=== PATIENT | male | born 1995 | race Caucasian/White ===

== ENCOUNTER 2016-09-13 14:46 | Emergency (ER) | payer BC ==
[2016-09-13 14:49] VITALS: BP 135/79; PULSE 79; RESP 16; TEMP 97.9; O2SAT 98
--- NOTE | 2016-09-13 15:06 | EDPHY ---
H & P Time Seen by Provider: 09/13/16 14:56 HPI/ROS: CHIEF COMPLAINT: Right thumb laceration HISTORY OF PRESENT ILLNESS: Loading a [employer] truck for a local move when he jammed his right thumb into a piece of sharp metal. REVIEW OF SYSTEMS: No weakness or numbness, no foreign body sensation, no other injuries. PAST MEDICAL HISTORY: Negative Social history: Lives in [place], not sure of tetanus is up-to-date General Appearance: Alert and conversant, cooperative. Patient has a 1 cm laceration that extends volar from the tip of the thumb nail. FDP FDS and extensor tendon function intact. Normal cap refill and two-point discrimination. No subungual hematoma seen. Emergency Department course/MDM: Procedure: Laceration repair. Verbal consent was obtained from the patient. The 1 cm laceration on the location was anesthetized using 0.5% bupivacaine with out epinephrine. The wound was irrigated with standard emergency department protocol, draped and explored. There were no deep structures involved. No tendon injury was identified. No foreign body found. He did have a 1 mm thick sliver of the nail cut off the distal part of the thumb. The wound was repaired with 5 0 nylon. The wound repair was simple. Excellent hemostasis was obtained. Wound care instructions were discussed and the patient was warned regarding scarring. The procedure was performed by myself. Smoking Status: Never smoked Constitutional: Initial Vital Signs Temperature (C) 36.6 C 09/13/16 14:47 Heart Rate 79 09/13/16 14:47 Respiratory Rate 16 09/13/16 14:47 Blood Pressure 135/79 H 09/13/16 14:47 O2 Sat (%) 98 09/13/16 14:47 O2 Delivery Mode Room Air Allergies/Adverse Reactions: No Known Allergies Allergy (Unverified 06/07/13 12:37) Home Medications: Medication Instructions Recorded No Home Meds 06/07/13 Lidocaine 2% Viscous [Lidocaine 2% 5 ml PO Q2-3PRN PRN #100 ml 02/24/15 Viscous (RX)] MDM/Departure - Depart Disposition: Home, Routine, Self-Care Clinical Impression: Laceration of right thumb Qualifiers: Encounter type: initial encounter Damage to nail status: with damage Foreign body presence: without foreign body Qualified Code(s): S61.111A - Laceration without foreign body of right thumb with damage to nail, initial encounter Condition: Good Instructions: Care For Your Stitches (ED), Laceration (ED) Additional Instructions: Wound Care Follow-Up: Removal of sutures in 10 days. Suture removal is complimentary in uncomplicated cases. Infection or abnormal findings would require reevaluation by the MD. In that case, you may be billed. Referrals: Magali Genao MD [Medical Doctor] - As per Instructions
== END 2016-09-13 15:49 | disposition home or self-care (01) ==
PROC: 0HQFXZZ Repair Right Hand Skin, External Approach (ICD-10-PCS; principal; 2016-09-13)
DX: S61.111A Laceration without foreign body of right thumb with damage to nail, initial encounter (principal); W23.1XXA Caught, crushed, jammed, or pinched between stationary objects, initial encounter

== ENCOUNTER 2016-09-14 16:16 | Emergency (ER) | payer BC ==
[2016-09-14] MEDS ORDERED: TDAP ADULT 0.5 ML INJ (BOOSTRIX) IM ONE ×2 (16:21→16:46)
[2016-09-14 16:24] VITALS: BP 126/57; PULSE 64; RESP 16; TEMP 97.9; O2SAT 96
== END 2016-09-14 16:54 | disposition home or self-care (01) ==
DX: Z23 Encounter for immunization (principal)